=== PATIENT | female | born 1975 | race Two or more races ===

== ENCOUNTER 2017-06-20 15:08 | Emergency (ER) | payer OTHER ==
[~2017-06-20] VITALS: Ht 170.2 cm; Wt 88.5 kg
[~2017-06-20 15:08] MED LIST: ASCO500T9 PO; ASPI81TA2 PO; ERGO50003 PO; FERR325T28 PO; IBUP-23 PO; LEVO100T9 PO; LEVO500T15 PO
--- NOTE | 2017-06-20 15:17 | NUR ---
pt ambulatory to er bed 12. multiple comlaints, chest pain since yesterday describing it as throbbing, non radiating. ruq abdomal pain. head ache x 4 days. gowned and placed on monitor. nad noted. awaiting md willett.
--- NOTE | 2017-06-20 16:03 | NUR ---
dr hassan at bedside for eval.
--- NOTE | 2017-06-20 16:16 | NUR ---
iv line started blood drawn and sent to lab.
[2017-06-20 16:35] LABS: BASOPHILS # (AUTO) 0.1 /CMM (0.0-0.2); BASOPHILS % (AUTO) 0.9 % (0.0-2.0); EOSINOPHILS # (AUTO) 0.1 /CMM (0.0-0.7); EOSINOPHILS % (AUTO) 1.2 % (0.0-6.0); HEMATOCRIT 41 % (33-45); HEMOGLOBIN 13.6 g/dL (11.5-14.8); LYMPHOCYTES # (AUTO) 3.1 /CMM (0.8-4.8); LYMPHOCYTES % (AUTO) 27.1 % (20.0-44.0); MEAN CORPUSCULAR HEMOGLOBIN 31 PG (26.0-33.0); MEAN CORPUSCULAR HGB CONC 33 g/dl (31.0-36.0); MEAN CORPUSCULAR VOLUME 92 fL (82-100); MONOCYTES # (AUTO) 0.5 /CMM (0.1-1.30); MONOCYTES % (AUTO) 4.8 % (2.0-12.0); NEUTROPHILS # (AUTO) 7.6 /CMM (1.8-8.9); PLATELET COUNT (AUTO) 248 /CMM (150-450); RDW COEFFICIENT OF VARIATION 11.9 (11.5-15.0); WHITE BLOOD COUNT (AUTO) 11.4 K/uL (4.3-11.0)
--- NOTE | 2017-06-20 16:36 | NUR ---
radiology at bedside for chest xray.
[2017-06-20 16:40] LABS: CALCIUM, SERUM 8.6 mg/dL (8.5-10.1); CARBON DIOXIDE 31 mmol/L (21-32); CHLORIDE 104 mmol/L (98-107); GLUCOSE 92 mg/dL (74-106); POTASSIUM 3.6 mmol/L (3.5-5.1); SODIUM SERUM 140 mmol/L (136-145); UREA NITROGEN, BLOOD 6 mg/dL (7-18)
[2017-06-20 16:43] LABS: INR 0.94 (0.87-1.13); PROTHROMBIN TIME 9.8 SECS (9.5-12.7)
[2017-06-20 16:49] LABS: TROPONIN I < 0.017 ng/mL (0.00-0.056)
--- NOTE | 2017-06-20 19:13 | NUR ---
Patient discharged to home in stable condition. Written and verbal after care instructions given. Patient verbalizes understanding of instruction.IV removed. Catheter intact and site benign. Pressure and 4x4 applied to site. No bleeding noted.
[2017-06-20 19:14] VITALS: BP 132/91
== END 2017-06-20 19:14 | disposition home or self-care (01) ==
LOC: ER 15:10
DX: R07.89 Other chest pain (principal); R10.11 Right upper quadrant pain; E03.9 Hypothyroidism, unspecified; Z79.82 Long term (current) use of aspirin; Z90.49 Acquired absence of other specified parts of digestive tract
CPT/HCPCS: 36415; 71010-TC; 80048-TC; 84443-TC; 84484-TC; 85025-TC; 85730-TC; A4606; Z7610

== ENCOUNTER 2018-06-10 20:05 | Emergency (ER) | payer OTHER ==
[~2018-06-10] VITALS: Ht 170.2 cm; Wt 90.7 kg
[~2018-06-10 20:05] MED LIST changes: +ASPI-1169 PO; -ASPI81TA2 PO; +ERGO500014 PO; -ERGO50003 PO; -LEVO500T15 PO; +LEVO500T75 PO
--- NOTE | 2018-06-10 20:10 | NUR ---
BBSELF FROM HOME C/C RLQ ABD PAIN NON RADIATING [id number] S/P UTERINE SURGERY W/ +N,+D,-V. -DYSURIA. +HEMATURIA. AFEBRILE, NAD NOTED, VSS, RESP EVEN AND UNLABORED, PT WAS PUT ON MONITOR, WAITING FOR MD WIN.
[2018-06-10 21:33] LABS: BASOPHILS # (AUTO) 0.1 /CMM (0.0-0.2); BASOPHILS % (AUTO) 1.1 % (0.0-2.0); EOSINOPHILS % (AUTO) 2.1 % (0.0-6.0); HEMATOCRIT 39 % (33-45); HEMOGLOBIN 12.8 g/dL (11.5-14.8); LYMPHOCYTES # (AUTO) 4.2 /CMM (0.8-4.8); MEAN CORPUSCULAR HEMOGLOBIN 31 PG (26.0-33.0); MEAN CORPUSCULAR HGB CONC 33 g/dl (31.0-36.0); MEAN CORPUSCULAR VOLUME 93 fL (82-100); MONOCYTES # (AUTO) 0.9 /CMM (0.1-1.30); MONOCYTES % (AUTO) 8.5 % (2.0-12.0); NEUTROPHILS # (AUTO) 5.6 /CMM (1.8-8.9); NEUTROPHILS % (AUTO) 50.3 % (43.0-81.0); PLATELET COUNT (AUTO) 358 /CMM (150-450); RDW COEFFICIENT OF VARIATION 11.5 (11.5-15.0); RED BLOOD CELL COUNT(AUTO) 4.19 MIL/uL (4.0-5.2); WHITE BLOOD COUNT (AUTO) 10.9 K/uL (4.3-11.0)
[2018-06-10 21:40] LABS: POTASSIUM 3.6 mmol/L (3.5-5.1)
[2018-06-10 21:44] LABS: INR 0.89 (0.85-1.15)
[2018-06-10 21:46] LABS: ALBUMIN 3.2 g/dL (3.4-5.0); BILIRUBIN,DIRECT 0.1 mg/dL (0.0-0.2); BILIRUBIN,TOTAL 0.2 mg/dL (0.2-1.0)
[2018-06-10] MEDS ORDERED: IOHEXOL-300 100 ML VIAL IV ONE (21:52)
[2018-06-10] MEDS ORDERED: CT SWABBABLE VALVE TRANS SET 1 EA INFUS.SET MC ONE (21:52)
[2018-06-10] MEDS ORDERED: IV NS 0.9% 250 ML IV ONE (21:52)
[2018-06-10 21:59] LABS: APPEARANCE,URINE SL CLOUDY (CLEAR); BILIRUBIN,URINE NEGATIVE (NEGATIVE); BLOOD, URINE 3+ Ery/uL (NEGATIVE); COLOR,URINE YELLOW (YELLOW); KETONES,URINE NEGATIVE (NEGATIVE); LEUKOCYTE ESTERASE ,URINE 1+ (NEGATIVE); NITRITE, URINE NEGATIVE (NEGATIVE); PH,URINE 5.5 (5.0-8.0); PROTEIN,URINE NEGATIVE (NEGATIVE); UGLUCOSE NEGATIVE (NEGATIVE); UROBILINOGEN,URINE 0.2 EU/dL (0.2)
[2018-06-10 22:04] LABS: BACTERIA,URINE Many /HPF (None Seen); SQUAMOUS EPITHELIAL CELL,UR Few /HPF (None Seen); WBC,URINE 21-50 /HPF (0-3)
--- NOTE | 2018-06-10 23:22 | NUR ---
PT IS HERE TO TRANSPORT PT TO [facility] FOR CTSCAN AND BACK
[2018-06-11 01:02] LABS: APPEARANCE,URINE CLEAR (CLEAR); BILIRUBIN,URINE NEGATIVE (NEGATIVE); BLOOD, URINE 2+ Ery/uL (NEGATIVE); COLOR,URINE OTHER (YELLOW); KETONES,URINE NEGATIVE (NEGATIVE); LEUKOCYTE ESTERASE ,URINE TRACE (NEGATIVE); NITRITE, URINE NEGATIVE (NEGATIVE); PROTEIN,URINE NEGATIVE (NEGATIVE); UGLUCOSE NEGATIVE (NEGATIVE); UROBILINOGEN,URINE 0.2 EU/dL (0.2)
[2018-06-11 01:07] LABS: RBC,URINE 0-2 /HPF (0-2)
[2018-06-11 01:08] LABS: BACTERIA,URINE Few /HPF (None Seen); SQUAMOUS EPITHELIAL CELL,UR Few /HPF (None Seen)
[2018-06-11 01:57] VITALS: BP 122/84
== END 2018-06-11 01:58 | disposition home or self-care (01) ==
LOC: ER 20:06
DX: R10.31 Right lower quadrant pain (principal); E03.9 Hypothyroidism, unspecified; Z79.82 Long term (current) use of aspirin; Z79.899 Other long term (current) drug therapy
CPT/HCPCS: 36415; 74177; 76856; 80048; 80076; 81001 ×2; 83690; 84703; 85025; 85730; 87086; 99285; A4606; J7050; Q9967; Z7610; 81000-TC

== ENCOUNTER 2020-02-29 17:17 | Emergency (ER) | payer OTHER ==
[~2020-02-29] VITALS: Ht 170.2 cm; Wt 93.4 kg
[~2020-02-29 17:17] MED LIST changes: +ASCO-352 PO; -ASCO500T9 PO
--- NOTE | 2020-02-29 17:30 | NUR ---
WENT TO URGENT CARE FOR HEADACHE X 1 WEEK, LABS WERE DONE AND SHOWED ELEVATED WBC, THUS, WAS TOLD TO COME HERE INSTEAD. PATIENT A/OX4, BREATHING EVEN AND UNLABORED, NO SOB NOTED, NEEDS ATTENDED, KEPT COMFORTABLE.
[2020-02-29] MEDS ORDERED: LEVO125T8 PO (17:53)
[2020-02-29] MEDS ORDERED: MORPHINE SULFATE INJ 4 MG/ML DISP.SYRIN ONE (17:59)
[2020-02-29] MEDS ORDERED: ONDANSETRON HCL/PF 4 MG/2 ML VIAL ONE (17:59)
[2020-02-29] MEDS ORDERED: IV NS 0.9% 1,000 ML BAG IV ONE (18:00)
[2020-02-29] MEDS ORDERED: ONDANSETRON HCL/PF 4 MG/2 ML VIAL IVP ONE (18:00)
[2020-02-29] MEDS ORDERED: MORPHINE SULFATE INJ 2 MG/ML DISP.SYRIN IV ONE (18:00)
[2020-02-29 18:13] LABS: BASOPHILS # (AUTO) 0.1 /CMM (0.0-0.2); BASOPHILS % (AUTO) 1.2 % (0.0-2.0); EOSINOPHILS % (AUTO) 1.3 % (0.0-6.0); HEMATOCRIT 44 % (33-45); HEMOGLOBIN 14.5 g/dL (11.5-14.8); LYMPHOCYTES # (AUTO) 3.7 /CMM (0.8-4.8); LYMPHOCYTES % (AUTO) 35.3 % (20.0-44.0); MEAN CORPUSCULAR HGB CONC 33 g/dl (31.0-36.0); MEAN CORPUSCULAR VOLUME 94 fL (82-100); MONOCYTES # (AUTO) 0.7 /CMM (0.1-1.30); MONOCYTES % (AUTO) 6.8 % (2.0-12.0); NEUTROPHILS # (AUTO) 5.8 /CMM (1.8-8.9); NEUTROPHILS % (AUTO) 55.4 % (43.0-81.0); PLATELET COUNT (AUTO) 304 /CMM (150-450); RED BLOOD CELL COUNT(AUTO) 4.66 MIL/uL (4.0-5.2); WHITE BLOOD COUNT (AUTO) 10.4 K/uL (4.3-11.0)
[2020-02-29 18:25] LABS: APPEARANCE,URINE Clear (CLEAR); BILIRUBIN,URINE Negative (NEGATIVE); BLOOD, URINE Trace-lysed Ery/uL (NEGATIVE); COLOR,URINE Yellow (YELLOW); KETONES,URINE Negative (NEGATIVE); LEUKOCYTE ESTERASE ,URINE Negative (NEGATIVE); NITRITE, URINE Negative (NEGATIVE); PROTEIN,URINE Negative (NEGATIVE); UGLUCOSE Negative (NEGATIVE); UROBILINOGEN,URINE 0.2 EU/dL (0.2)
[2020-02-29 18:26] LABS: CREATININE 0.9 mg/dL (0.6-1.3); POTASSIUM 3.9 mmol/L (3.5-5.1)
[2020-02-29 18:32] LABS: ALBUMIN 3.6 g/dL (3.4-5.0); BILIRUBIN,DIRECT 0.1 mg/dL (0.0-0.2); BILIRUBIN,TOTAL 0.6 mg/dL (0.2-1.0); TOTAL PROTEIN, SERUM 7.3 g/dL (6.4-8.2)
[2020-02-29] MEDS ORDERED: IOHEXOL-300 100 ML VIAL IV ONE ×2 (18:40→18:47)
[2020-02-29] MEDS ORDERED: IV NS 0.9% 250 ML IV ONE (18:40)
[2020-02-29 18:45] LABS: BACTERIA,URINE Few /HPF (None Seen); RBC,URINE 2-4/HPF /HPF (0-2); SQUAMOUS EPITHELIAL CELL,UR Moderate /HPF (None Seen); URINE AMORPHOUS URATE Few /HPF (None Seen); WBC,URINE 0-2 /HPF (0-3)
[2020-02-29 18:46] LABS: MUCUS,URINE Few /LPF (None Seen)
--- NOTE | 2020-02-29 18:50 | NUR ---
PATIENT CAME BACK FROM CT, NO DISTRESS NOTED. NEEDS ATTENDED.
--- NOTE | 2020-02-29 19:20 | NUR ---
REPORT RECEIVED FROM UZIEL BENÍTEZ
[2020-02-29] MEDS ORDERED: ACETAMINOPHEN ES 500 MG TABLET ONE (21:04)
[2020-02-29 21:26] VITALS: BP 127/84
--- NOTE | 2020-02-29 21:26 | NUR ---
Filiberto wheat in [facility] - 02/29/20 at 2126 by ELVIN (pt. name) ambulatory with a steady gait
--- NOTE | 2020-02-29 21:26 | NUR ---
PT ambulatory with a steady gait
== END 2020-02-29 21:27 | disposition home or self-care (01) ==
LOC: ER 17:17
DX: R10.31 Right lower quadrant pain (principal); R51 Headache; K76.0 Fatty (change of) liver, not elsewhere classified; R19.7 Diarrhea, unspecified; E03.9 Hypothyroidism, unspecified; Z98.890 Other specified postprocedural states; Z79.899 Other long term (current) drug therapy; Z79.82 Long term (current) use of aspirin
CPT/HCPCS: 36415; 74177; 80048; 80076; 81001; 83690; 85025; 87086; 96361; 96374; 96375; 99285; J2270; J2405; J7030; J7050; Q9967; 81000-TC